=== PATIENT | female | born 1995 | race American Indian/Alaskan Native ===

== ENCOUNTER 2018-01-30 17:20 | Emergency (ER) | payer BC ==
[2018-01-30 17:20] VITALS: BMI 18.3
[2018-01-30 17:25] VITALS: BP 125/78; PULSE 98; RESP 16; TEMP 98.9; O2SAT 100
[2018-01-30 18:35] LABS: HCG,QUALITATIVE URINE POSITIVE (NEGATIVE)
[2018-01-30 18:38] LABS: SQUAMOUS EPITHIAL 1 /hpf (0-5); URINE BILIRUBIN NEGATIVE (NEGATIVE); URINE BLOOD NEGATIVE (NEGATIVE); URINE CLARITY Clear (Clear); URINE COLOR Yellow (YELLOW); URINE GLUCOSE (UA) NORMAL (Normal); URINE LEUKOCYTE ESTERASE NEG Leu/uL (Negative); URINE PROTEIN NEGATIVE (NEGATIVE); URINE UROBILINOGEN NORMAL mg/dL (0.2-1.0)
== END 2018-01-30 19:04 | disposition left against medical advice (07) ==
LOC: C.ER 17:20
DX: Z02.89 Encounter for other administrative examinations (principal); R10.9 Unspecified abdominal pain
CPT/HCPCS: 81001; 84703; LWBS0